=== PATIENT | female | born 1990 | race African-American/Black ===

== ENCOUNTER 2017-08-29 19:15 | Emergency (ER) | payer MEDICAID ==
[~2017-08-29] VITALS: Ht 167.6 cm; Wt 83.9 kg
--- NOTE | 2017-08-29 19:20 | NUR ---
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 PT AOX3 RR EVEN AND UNLABORED. NO SOB NOTED. NAD NOTED. NO NVD AT THIS TIME. PT PLACED ON MONITOR. DR CURRAN AT BEDSIDE FOR EVAL. LAC NOTED ON RIGHT LEG.
[2017-08-29] MEDS ORDERED: LIDOCAINE 1%-EPI 1:100,000 50 ML VIAL IJ ONE (19:30)
[2017-08-29] MEDS ORDERED: MORPHINE SULFATE INJ 2 MG/ML DISP.SYRIN IV ONE (19:30)
[2017-08-29] MEDS ORDERED: LORAZEPAM INJ 2 MG/ML VIAL IV ONE (19:30)
[2017-08-29] MEDS ORDERED: TDAP [DIPH/PERTUSSIS/TET] 0.5 ML VIAL IM ONE ×4 (19:30→20:03)
[2017-08-29] MEDS ORDERED: ONDANSETRON HCL/PF - ER 4 MG/2 ML VIAL IV ONE (19:30)
[2017-08-29] MEDS ORDERED: ACETAMINOPHEN ES 500 MG TABLET PO ONE (19:30)
[2017-08-29] MEDS ORDERED: ACETAMINOPHEN ES 500 MG TABLET ONE (19:50)
--- NOTE | 2017-08-29 19:50 | NUR ---
XRAY AT BEDSIDE
[2017-08-29] MEDS ORDERED: LORAZEPAM INJ 2 MG/ML VIAL ONE (19:51)
[2017-08-29] MEDS ORDERED: CEFAZOLIN 1 GM in IV D5W 50 ML IV ONE (20:00)
--- NOTE | 2017-08-29 20:08 | NUR ---
RUTHIE ARAMBULA AT BEDSIDE FOR LAC REPAIR.
[2017-08-29] MEDS ORDERED: CEFAZOLIN 1 GM ONE (20:31)
--- NOTE | 2017-08-29 22:29 | NUR ---
BOYFRIEND AT BEDSIDE
--- NOTE | 2017-08-29 23:21 | NUR ---
IV removed. Catheter intact and site benign. Pressure and 4x4 applied to site. No bleeding noted. Patient discharged to home in stable condition. Written and verbal after care instructions given. Patient verbalizes understanding of instruction. ambulatory with a steady gait with crutches. pt requested to be w/c. instructed not to drive. pt verbalize understanding.
[2017-08-29 23:22] VITALS: BP 118/68
== END 2017-08-29 23:23 | disposition home or self-care (01) ==
LOC: ER 19:18
PROC: 0JQN0ZZ Repair Right Lower Leg Subcutaneous Tissue and Fascia, Open Approach (ICD-10-PCS; principal; 2017-08-29)
DX: S81.812A Laceration without foreign body, left lower leg, initial encounter (principal); W25.XXXA Contact with sharp glass, initial encounter; Y93.89 Activity, other specified; Y92.89 Other specified places as the place of occurrence of the external cause; Y99.8 Other external cause status
CPT/HCPCS: 12034; 73590; 90471; 90715; 96365; 96375; 99284; A6253; A6402 ×2; A6403; J0690 ×2; J2060; J2405; J7060

== ENCOUNTER 2017-08-31 16:21 | Emergency (ER) | payer MEDICAID ==
[~2017-08-31] VITALS: Ht 170.2 cm; Wt 79.4 kg
[2017-08-31 16:51] VITALS: BP 137/68
--- NOTE | 2017-08-31 17:10 | NUR ---
Patient discharged to home in stable condition. Written and verbal after care instructions given. Patient verbalizes understanding of instruction. WOUND CARE - DONE BY EMT AT BEDSIDE
== END 2017-08-31 17:16 | disposition home or self-care (01) ==
LOC: ER 16:23
DX: S81.811D Laceration without foreign body, right lower leg, subsequent encounter (principal)
CPT/HCPCS: 99283; A4606; Z7610